=== PATIENT | male | born 1990 | race Caucasian/White ===

== ENCOUNTER 2019-03-04 00:23 | Inpatient (IN) | payer MEDICAID | END 2019-03-06 14:21 | disposition still patient (30) | LOC: ADULT MH 00:23 | DX: R45.851 Suicidal ideations (principal); F31.4 Bipolar disorder, current episode depressed, severe, without psychotic features; F15.10 Other stimulant abuse, uncomplicated; I10 Essential (primary) hypertension; F43.10 Post-traumatic stress disorder, unspecified ==

== ENCOUNTER 2019-03-07 15:15 | Emergency (ER) | payer MEDICAID ==
[~2019-03-07] VITALS: Ht 175.3 cm; Wt 59.1 kg
[~2019-03-07 15:15] MED LIST: BUPR300T54 PO; MELA3TAB PO; MIRT30TA PO; OXCA300T4 PO; PROP10TA10 PO
--- NOTE | 2019-03-07 16:49 | NUR ---
MD at bedside, pt states drank alcohol last night and did meth. states lost all his medicaion d/c with yesterday including b/p medication. Noted multiple cut like scars on left inner arm. plan for SI is to take any medications he can find and or overdose on street drugs. States has tried to kill self in the past and says afraid of hurting others but does not voice a plan to hurt others. MD asked pt if he could get him new clothing, food and new RX would he be ok and pt requested transportation/bus pass.
[2019-03-07] MEDS ORDERED: buproprion 150mg XL (24-hour) tablet PO STA (17:01)
[2019-03-07] MEDS ORDERED: normal saline 1000ML IV soln IVB ONE (17:05)
[2019-03-07] MEDS ORDERED: propranolol 10mg tablet PO ONE (17:05)
--- NOTE | 2019-03-07 17:18 | NUR ---
Removed clothing from patient, belongings as listed, x 2 cell phones, x 1 senior research consultant, x 1 ear buds, sunglasses, tennis shoes, socks, jeans (no belt) approx 2.00 and some change in sena, miner t shirt, brown underware, miscelaneous tissues. labled and placed in personal belongings bag, gave urinal as requested. report to alejandra alegria
[2019-03-07] MEDS ORDERED: OXCA300T4 PO (18:11)
[2019-03-07] MEDS ORDERED: MIRT30TA3 PO (18:11)
[2019-03-07] MEDS ORDERED: BUPR300T53 PO (18:11)
[2019-03-07] MEDS ORDERED: PROP10TA10 PO (18:11)
[2019-03-07] MEDS ORDERED: GABA600T13 PO (18:46)
[2019-03-07 19:18] LABS: BASOPHILS # (AUTO) 0.1 X10'3 (0-0.2); BASOPHILS % (AUTO) 0.6 % (0-1); EOSINOPHILS % (AUTO) 0.2 % (0-6); HEMATOCRIT 48.4 % (42.0-52.0); HEMOGLOBIN 16.7 g/dl (14.0-17.9); LYMPHOCYTES # (AUTO) 2.8 X10'3 (1.1-4.8); MEAN CORPUSCULAR HEMOGLOBIN 29.9 PG (27.0-31.0); MEAN CORPUSCULAR HGB CONC 34.4 g/dL (33.0-36.5); MEAN CORPUSCULAR VOLUME 86.8 FL (78-98); MEAN PLATELET VOLUME 8.3 FL (7.4-10.4); MONOCYTES # (AUTO) 0.9 X10'3 (0-0.9); MONOCYTES % (AUTO) 6.4 % (2-12); NEUTROPHILS # (AUTO) 10.3 X10'3 (1.8-7.7); NEUTROPHILS % (AUTO) 72.8 % (42-75); PLATELET COUNT 368 X10'3 (140-440); RED BLOOD COUNT 5.57 X10'6 (4.70-6.10); RED CELL DISTRIBUTION WIDTH 13.7 % (11.5-14.5); WHITE BLOOD COUNT 14.1 X10'3 (4.5-11.0)
[2019-03-07 19:21] LABS: URINE AMPHETAMINE SCREEN POSITIVE (Neg); URINE BARBITUATE SCREEN NEGATIVE (Neg); URINE BENZODIAZEPINES SCREEN NEGATIVE (Neg); URINE CANNABINOID SCREEN POSITIVE (Neg); URINE COCAINE SCREEN NEGATIVE (Neg); URINE METHADONE SCREEN NEGATIVE (Neg); URINE OPIATE SCREEN NEGATIVE (Neg); URINE PHENCYCLIDINE SCREEN NEGATIVE (Neg)
[2019-03-07 19:25] LABS: ALANINE AMINOTRANSFERASE 27 U/L (12-78); ALBUMIN/GLOBULIN RATIO 0.8 (1.1-1.5); ALKALINE PHOSPHATASE 126 IU/L (46-116); ANION GAP 12 (8-16); ASPARTATE AMINO TRANSFERASE 19 U/L (10-37); BILIRUBIN,TOTAL 0.4 MG/DL (0.1-1.0); BLOOD UREA NITROGEN 14 MG/DL (7-18); BUN/CREATININE RATIO 15.4 (5.4-32.0); CALCIUM 9.4 MG/DL (8.5-10.1); CHLORIDE 100 MMOL/L (99-107); CREATININE 0.91 MG/DL (0.60-1.10); GLUCOSE 114 MG/DL (70-104); SODIUM 135 MMOL/L (135-145); TOTAL CARBON DIOXIDE 23.3 MMOL/L (24-32); TOTAL PROTEIN 8.9 G/DL (6.4-8.2); eGFR > 90 ML/MIN
[2019-03-07 19:26] LABS: ETHANOL < 0.010 GM/DL (0.0-0.010)
[2019-03-07] MEDS ORDERED: BUPROPION 300 MG PO SCH (20:00)
[2019-03-07] MEDS: propranolol 10mg tablet PO SCH (20:00)
[2019-03-07] MEDS ORDERED: mirtazapine 15mg tablet PO SCH (21:00)
[2019-03-07] MEDS ORDERED: Melatonin 3mg tablet PO SCH (21:00)
[2019-03-07] MEDS: gabapentin 300mg capsule PO SCH (21:33)
--- NOTE | 2019-03-07 21:38 | NUR ---
The patient is stating he doesn't feel safe here in the overflow area. Stated he feels like people are talking about him. He was given his HS medications. His IV was discontinued per his request. THe patient is wanting to speak with the psychiatrist. He stated that he is wanting to get to [place].
--- NOTE | 2019-03-07 22:29 | NUR ---
Packet sent to [facility]. Confirmed receipt of packet with Deanna @ the [facility] office.
[2019-03-07] MEDS ORDERED: olanzapine 10mg tablet PO ONE (23:05)
[2019-03-07] MEDS ORDERED: OLANZapine 2.5MG tablet PO ONE (23:05)
--- NOTE | 2019-03-07 23:13 | NUR ---
The patient is anxious, hypervigilant and paranoid. Dr. Miller made aware and orders recieved.
[2019-03-08] MEDS ORDERED: gabapentin 300mg capsule PO SCH
--- NOTE | 2019-03-08 02:00 | NUR ---
The patient is awake off and on. He is making frequent requests to see a director of social work, a doctor, a lead supply worker etc. He was made aware that he would be seen by [facility] later in the day.
--- NOTE | 2019-03-08 04:53 | NUR ---
The patient is awake. He continues to want to see a social psychologist. Stated he left [facility] because he became angry and was discharged. He is wanting to see a social psychologist re SSI/housing. He was asking why he could not be readmitted upstairs. He was reminded that he would be seen by [facility] later today and if they felt he met criteria for a 5150 hold he would be placed in a psychiatric facility and he would be able to see a social psychologist there.
--- NOTE | 2019-03-08 05:56 | NUR ---
Pt up to bathroom to perform morning toilet. Fresh socks and scrubs given to pt.
--- NOTE | 2019-03-08 06:30 | NUR ---
Awake upon change of shift observation. Sitting up in bed. Staring at staff. Introduced self to staff. Patient stared at staff. Made no comment.
[2019-03-08] MEDS: gabapentin 300mg capsule PO SCH ×2 (07:13→12:57)
[2019-03-08] MEDS: propranolol 10mg tablet PO SCH (07:13)
[2019-03-08] MEDS ORDERED: buPROPion SR 150mg tablet PO SCH (08:00)
[2019-03-08] MEDS ORDERED: oxcarbazepine 150mg tablet PO SCH (08:00)
--- NOTE | 2019-03-08 08:30 | NUR ---
Patient served breakfast tray. Ate 100% of his food. All medications administered as ordered.
--- NOTE | 2019-03-08 09:34 | NUR ---
PT REFUSE EKG 0800
--- NOTE | 2019-03-08 11:30 | NUR ---
Debo Buenrostro from [facility] at bedside to evaluate patient.
--- NOTE | 2019-03-08 11:40 | NUR ---
PT IS STANDING UP IN HIS ROOM LEANING AGAINST THE WALL.
--- NOTE | 2019-03-08 11:53 | NUR ---
PT UP WALKING AROUND IN HIS ROOM, LOOKIN OUT PAST THE PARTITION, I ASKED HIM IF HE WAS OK, HE HAD NO RESPONSE.
--- NOTE | 2019-03-08 12:00 | NUR ---
Spoke at length with Debo Buenrostro about patient. Per history, patient came to us from [facility] as a direct admit to [facility] ([facility]). He was discharged from [facility] on 03/06/19, to the [place]. Discharge Diagnosis: Borderline Personality Disorder/Antisocial Personality Disorder/Methamphetamine Use Patient is actually from [facility] but wants to stay in [facility]. He was released from [facility] this February and ended up homeless. Patient is asking for a bus ticket to go back to [facility] where he is on probation. Directed to the [facility] [place] to inquire about their Journey Home program.
--- NOTE | 2019-03-08 12:10 | NUR ---
Patient discharged to the [facility] at this time, ambulatory, with all his personal possessions. Escorted out of the hospital by Security Staff without event.
[2019-03-08 14:11] VITALS: BP 156/96
== END 2019-03-08 12:10 | disposition home or self-care (01) ==
LOC: ER 15:15
DX: F41.9 Anxiety disorder, unspecified (principal); F15.10 Other stimulant abuse, uncomplicated; Z88.8 Allergy status to other drugs, medicaments and biological substances
CPT/HCPCS: 36415; 80053; 80305; 80320; 85025; 93005; 99284; J7030; 99285; J3490